=== PATIENT | male | born 1965 | race Caucasian/White ===

== ENCOUNTER 2024-07-07 13:09 | Outpatient (AMB) | payer OTHER, SELFPAY ==
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
[2024-07-07 13:20] VITALS: BP 122/78; PULSE 79; RESP 16; TEMP 36.6; O2SAT 96; BMI 27.6
== END 2024-07-07 14:24 | disposition home or self-care (01) ==
PROVIDERS: PCP Hospitalist; Visit Provider Nurse Practitioner Family
DX: Z00.00 Encounter for general adult medical examination without abnormal findings (principal); Z12.5 Encounter for screening for malignant neoplasm of prostate; Z23 Encounter for immunization

== ENCOUNTER → 2024-07-07 13:09 | Outpatient (BNVA) | payer OTHER, SELFPAY | PROVIDERS: PCP Hospitalist; Visit Provider Nurse Practitioner Family | DX: Z00.00 Encounter for general adult medical examination without abnormal findings (principal); Z23 Encounter for immunization; K21.9 Gastro-esophageal reflux disease without esophagitis; Z79.899 Other long term (current) drug therapy | CPT/HCPCS: 90471; 90472; 90656; 90715; 96127 ==

== ENCOUNTER 2024-07-12 08:48 | Outpatient (REF) | payer OTHER, SELFPAY ==
[2024-07-12 10:47] LABS: MANUAL DIFF FLAG NO
[2024-07-12 10:50] LABS: Basophils Absolute Auto 0.1 X10*3/uL (0.0-0.2); Basophils Percent Auto 1.2 % (0-2); Eosinophils Absolute Auto 0.1 X10*3/uL (0.0-0.4); Eosinophils Percent Auto 1.9 % (0-4); Hematocrit 44.5 % (42.0-52.0); Hemoglobin 15.7 g/dl (14.0-18.0); Imm Gran Abs Auto 0.01 X10*3/uL (0.00-0.03); Imm Gran Pct Auto 0.2 % (0.0-0.4); Lymphocytes Absolute Auto 1.2 X10*3/uL (1.2-4.9); Lymphocytes Percent Auto 27.9 % (20-40); Mean Corpuscular HGB Conc 35.3 g/dl (31.0-36.0); Mean Corpuscular Hemoglobin 31.3 pg (27.0-33.0); Mean Corpuscular Volume 88.6 fL (80.0-98.0); Monocytes Absolute Auto 0.4 X10*3/uL (0.1-1.2); Neutrophils Absolute Auto 2.5 x10*3/uL (2.0-8.3); Neutrophils Percent Auto 59.8 % (45-73); Platelet Count 175 X10*3/uL (160-400); Red Blood Count 5.02 X10*6/uL (4.60-5.80); Red Cell Distribution Width 12.1 % (11.0-16.0); White Blood Count 4.2 X10*3/uL (4.8-10.8)
[2024-07-12 11:11] LABS: Appearance Urine Clear; Color Urine Yellow; Glucose Urine UA Negative (Negative); Leukocyte Esterase Urine Negative (Negative); Nitrite Urine Negative (Negative); Specific Gravity - Urine >= 1.030 (1.005-1.025); Urine Blood Negative (Negative); Urine Ketones Trace mg/dL (Negative); Urine Protein Trace mg/dL (Neg-Trace)
[2024-07-12 11:20] LABS: Alanine Aminotransferase 26 U/L (0-40); Albumin Level 4.1 g/dL (3.5-5.0); Alkaline Phosphatase 71 U/L (39-117); Anion Gap 10 (12-20); Aspartate Amino Transferase 24 U/L (5-37); Bilirubin Total 0.4 mg/dL (0.0-1.0); Blood Urea Nitrogen 16 mg/dL (9-16); Calcium 8.9 mg/dL (8.4-10.2); Carbon Dioxide 28 mmol/L (22-29); Chloride 109 mmol/L (96-108); Cholesterol 213 mg/dL (<200); Estimated Glomerular Filt Rate > 60; Glucose Fasting 96 mg/dL (60-99); HDL Cholesterol 39 mg/dL (>40); LDL Cholesterol Calculated 120 mg/dL (<100); Potassium 3.9 mmol/L (3.3-5.1); Sodium 143 mmol/L (135-145); Total Protein 7.3 g/dL (6.5-8.0); Triglycerides 271 mg/dL (<150)
[2024-07-12 11:30] LABS: TSH reflex Free T4 1.04 uIU/mL (0.32-4.0)
[2024-07-12 11:56] LABS: Creatinine Urine 305.16 mg/dL; Microalbum/Creatinine Ratio Ur 5.5 ug/mg cr (<30)
[2024-07-18 15:24] LABS: PSA, Ultra Sensitive 0.41 ng/mL
== END 2024-07-12 08:49 | disposition home or self-care (01) ==
LOC: HO.HMGCLDS 08:48
PROVIDERS: PCP Nurse Practitioner Family; Visit Provider Nurse Practitioner Family
DX: Z00.00 Encounter for general adult medical examination without abnormal findings (principal); Z12.5 Encounter for screening for malignant neoplasm of prostate
CPT/HCPCS: 36415; 80053; 80061; 81003; 82043; 82570; 84153; 84443; 85025

== ENCOUNTER 2025-07-06 08:53 | Outpatient (AMB) | payer OTHER, SELFPAY ==
[2025-07-06 09:06] VITALS: BP 152/100; PULSE 71; TEMP 37.1; O2SAT 96; BMI 27.8
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
== END 2025-07-06 10:01 | disposition home or self-care (01) ==
PROVIDERS: PCP Nurse Practitioner Family; Visit Provider Physician Assistant
DX: R42 Dizziness and giddiness (principal); I10 Essential (primary) hypertension